=== PATIENT | male | born 1955 | race Caucasian/White ===

== ENCOUNTER → 2018-05-15 | Outpatient (CLI) | payer OTHER ==
[~2018-05-15] MED LIST: IOPAMIDOL (ISOVUE-300) 100 ML BTL ONE
== END ==
LOC: FIMAGING 13:39
PROVIDERS: ATTEND Internal Medicine
DX: M54.6 Pain in thoracic spine (principal)
CPT/HCPCS: Q9967

== ENCOUNTER → 2018-09-06 | Outpatient (CLI) | payer OTHER | LOC: BMCIMAGING 15:05 | PROVIDERS: ATTEND Family Medicine | DX: R05 Cough (principal); J40 Bronchitis, not specified as acute or chronic ==

== ENCOUNTER → 2018-09-21 | Outpatient (CLI) | payer OTHER | LOC: BMCIMAGING 15:28 | PROVIDERS: ATTEND Internal Medicine | DX: J40 Bronchitis, not specified as acute or chronic (principal); Z87.01 Personal history of pneumonia (recurrent) ==